=== PATIENT | female | born 1945 | race African-American/Black ===

== ENCOUNTER 2019-05-03 09:16 | Day surgery (SDC) | payer MEDICARE, MEDICAID ==
[~2019-05-03] VITALS: Ht 154.9 cm; Wt 92.5 kg
[~2019-05-03 09:16] MED LIST: AMLO10TA80 PO; BUPR150T9 PO; ERGO2000 PO; FAMO20TA8 PO; LEVO100T9 PO; LOSA1TAB40 PO; METO10TA3 PO; MONT10TA24 PO; SIMV10TA6 PO; SITA1TBM7 PO; SOLI5TAB7 PO; SUCR1TAB PO; TRIA1TAB92 PO
[2019-05-03 10:28] LABS: BASOPHILS % 1.1 % (0.0-2.0); EOSINOPHILS % 3.2 % (0.0-5.0); HEMATOCRIT. 29.8 % (36.0-48.0); HEMOGLOBIN. 9.9 g/dL (12.0-16.0); LYMPHOCYTES % 34.7 % (20.0-50.0); MEAN CORPUSCULAR HEMOGLOBIN 26.2 pg (28.0-32.0); MEAN CORPUSCULAR VOLUME 79.2 fL (81.0-99.0); MONOCYTES % 10.2 % (2.0-8.0); NEUTROPHILS % 50.8 % (40.0-76.0); PLATELET 377 x1000/uL (130-400); RED BLOOD CELL COUNT 3.76 mill/uL (4.2-5.4); RED CELL DISTRIBUTION WIDTH 16.4 % (11.6-14.6)
[2019-05-03 10:32] LABS: CHLORIDE 114 mEq/L (98-107)
[2019-05-03 10:37] LABS: INR 1.1; PARTIAL THROMBOPLASTIN TIME 26.1 sec (23.4-31.0); PROTHROMBIN TIME 11.3 sec (9.6-11.0)
[2019-05-03] MEDS ORDERED: LACTATED RINGERS 1,000 ML IV SCH (10:40)
[2019-05-03] MEDS ORDERED: FENTANYL CITRATE/PF 50MCG/ML 2ML VIAL ONE (11:08)
[2019-05-03] MEDS ORDERED: MIDAZOLAM HCL 2 MG/2 ML VIAL ONE (11:08)
[2019-05-03] MEDS ORDERED: LIDOCAINE HCL/PF 1% 10 MG/ML 5ML VIAL ONE (11:15)
[2019-05-03] MEDS ORDERED: PROPOFOL 200MG/20ML VIAL IV ONE (11:15)
[2019-05-03] MEDS ORDERED: DEXAMETHASONE 4MG/ML 1ML VIAL ONE (11:37)
[2019-05-03] MEDS ORDERED: ONDANSETRON HCL 4MG/2ML INJ ONE (11:37)
[2019-05-03] MEDS ORDERED: METOCLOPRAMIDE HCL 10MG/2ML VIAL ONE (11:49)
[2019-05-03] MEDS ORDERED: TERBUTALINE SULFATE 1MG/ML VIAL ONE (12:07)
[2019-05-03] MEDS ORDERED: HYDRALAZINE 20MG/ML VIAL ONE (12:11)
[2019-05-03] MEDS ORDERED: SODIUM CHLORIDE 0.9% 10ML VIAL ONE (12:11)
[2019-05-03] MEDS ORDERED: IBUP-2030 MT (12:23)
[2019-05-03] MEDS ORDERED: HYDROMORPHONE HCL/PF 2MG/ML CPJ IV PRN (12:30)
== END 2019-05-03 14:05 | disposition home or self-care (01) ==
LOC: OR 09:16
PROVIDERS: ATTEND Obstetrics & Gynecology
DX: N95.0 Postmenopausal bleeding (principal); R94.31 Abnormal electrocardiogram [ECG] [EKG]; I10 Essential (primary) hypertension; E78.00 Pure hypercholesterolemia, unspecified; E11.9 Type 2 diabetes mellitus without complications; E03.9 Hypothyroidism, unspecified; E66.01 Morbid (severe) obesity due to excess calories; J44.9 Chronic obstructive pulmonary disease, unspecified; Z79.899 Other long term (current) drug therapy; Z79.84 Long term (current) use of oral hypoglycemic drugs; Z98.51 Tubal ligation status; Z98.890 Other specified postprocedural states; Z88.8 Allergy status to other drugs, medicaments and biological substances; Z88.0 Allergy status to penicillin; Z68.38 Body mass index [BMI] 38.0-38.9, adult
CPT/HCPCS: 36415; 58558; 71045; 80053; 82962; 85025; 85610; 85730; 86850; 86900; 86901; 88305; 93005; C1893; J1100; J2250; J2405; J2704; J2765; J3010; J3105; J3490; J0360